=== PATIENT | female | born 1940 | race Caucasian/White ===

== ENCOUNTER → 2016-06-12 | Outpatient (CLI) | payer OTHER | LOC: BMCIMAGING 10:31 | DX: Z12.31 Encounter for screening mammogram for malignant neoplasm of breast (principal) | CPT/HCPCS: G0202 ==

== ENCOUNTER → 2017-01-13 | Outpatient (CLI) | payer OTHER | LOC: BMCIMAGING 16:02 | PROVIDERS: ATTEND Nurse Practitioner Adult Health | DX: M25.511 Pain in right shoulder (principal) ==

== ENCOUNTER → 2017-11-30 | Outpatient (CLI) | payer OTHER ==
[~2017-11-30] MED LIST: IOPAMIDOL (ISOVUE-300) 100 ML BTL ONE
== END ==
LOC: FIMAGING 09:53
PROVIDERS: ATTEND Radiology Diagnostic Radiology
DX: M79.662 Pain in left lower leg (principal); R22.42 Localized swelling, mass and lump, left lower limb; I87.1 Compression of vein
CPT/HCPCS: 72193; Q9967; 82565-PO

== ENCOUNTER → 2017-12-14 | Outpatient (CLI) | payer OTHER | LOC: FIMAGING 09:54 | PROVIDERS: ATTEND Radiology Diagnostic Radiology | DX: M79.661 Pain in right lower leg (principal); M79.662 Pain in left lower leg; M79.89 Other specified soft tissue disorders ==

== ENCOUNTER 2018-02-10 11:34 | Day surgery (SDC) | payer OTHER ==
[2018-02-10] MEDS ORDERED: FLUMAZENIL 0.5 MG/5 ML MDV IVP PRN (12:04)
[2018-02-10] MEDS ORDERED: fentaNYL 100 MCG/2 ML INJ IVP PRN (12:04)
[2018-02-10] MEDS ORDERED: MIDAZOLAM 2 MG/2 ML VIAL IVP PRN (12:04)
[2018-02-10] MEDS ORDERED: NALOXONE HCL 0.4 MG/ML INJ IVP PRN (12:04)
[2018-02-10] MEDS ORDERED: NS 1,000 ML IV SCH ×2 (12:15→12:30)
[2018-02-10] MEDS ORDERED: HEPARIN 10,000 UNIT/10 ML MDV (1,000 UNIT/ML) IVP PRN (12:16)
[2018-02-10] MEDS ORDERED: MEPERIDINE 25 MG/ML SYR IVP PRN (12:16)
[2018-02-10] MEDS ORDERED: ALTEPLASE 2 MG VIAL IVP PRN (12:16)
[2018-02-10] MEDS ORDERED: GLUCAGON HCL 1 MG VIAL IVP PRN (12:16)
[2018-02-10] MEDS ORDERED: PROTAMINE SULFATE 50 MG/5 ML VIAL IVP PRN (12:16)
[2018-02-10 13:11] LABS: INR 1.05 (0.83-1.16); PROTIME(PATIENT) 13.9 SEC (12.0-15.0)
--- NOTE | 2018-02-10 14:47 | PDGENHP ---
History & Physical Chief Complaint: ? central venous obstruction ? History of Present Illness: extensive LLE swelling and pain of unknown cause. Pertinent Past, Social, Family History: non smoker. has had multiple prior evaluations. Relevant Physical Exam: pain is more concerning for patient than the swelling Cardiorespiratory Assessment: CTA, RRR
--- NOTE | 2018-02-10 14:47 | PDPROPOC ---
Sedation Plan of Care Sedation Plan of Care: vital signs stable, mental status noted, patient educated of risks, benefits, alternatives, patient can tolerate sedation ASA Classification: ASA 2 Planned drugs: fentanyl, midazolam Mallampati Score: Class 2 Mallampati Reference Image: Patient passed 3-3-2 rule?: Yes
--- NOTE | 2018-02-10 14:48 | PDRADPN ---
Radiology Procedure Note Date of Procedure: 02/10/18 Radiologist: Nhi Merritt Anesthesia: IV Sedation Pre-op Diagnosis: LLE SWELLING Post-op Diagnosis: SAME Indication: R/O CENTRAL VENOUS OBSTRUCTION Procedure: LT LEG VENOGRAM Inf/Abcess present in the surg proc area at time of surgery?: No
[2018-02-10 15:40] VITALS: BP 146/82
[2018-02-10] MEDS ORDERED: IOPAMIDOL (ISOVUE-300) 100 ML BTL ONE (17:38)
== END 2018-02-10 16:02 | disposition home or self-care (01) ==
LOC: FIMAGING 11:34
PROVIDERS: ATTEND Radiology Diagnostic Radiology
DX: M79.605 Pain in left leg (principal); M79.89 Other specified soft tissue disorders; M46.07 Spinal enthesopathy, lumbosacral region; M51.86 Other intervertebral disc disorders, lumbar region
CPT/HCPCS: 36012; 75820; 76937; C1769; C1894; J1644; J2250; J2310; J3010; Q9967